=== PATIENT | female | born 1980 | race Caucasian/White ===

== ENCOUNTER 2022-02-19 10:27 | Inpatient (IN) ==
[2022-02-19] MEDS ORDERED: ASPIRIN 325 MG TABLET ONE (11:00)
[2022-02-19] MEDS ORDERED: ASPIRIN 325 MG TABLET PO STA (11:08)
[2022-02-19 11:15] LABS: Basophils # 0.1 10*3/uL (0.0-0.2); Basophils % 0.9 % (0.0-0.8); Eosinophils # 0.1 10*3/uL (0.0-0.87); Eosinophils % 1.3 % (0.00-10.9); Hematocrit 43.3 VOL% (35.7-47.0); Hemoglobin 14.2 GM/DL (12.0-16.0); Immature Granulocytes % 0.3 %; Immature Granulocytes Absolute 0.02 #; Lymphocytes # 3.6 10*3/uL (1.4-4.0); Lymphocytes % 45.9 % (21.3-54.2); Mean Corpuscular HGB Conc 32.8 GM/DL (32-36); Mean Corpuscular Volume 94.7 FL (87-102); Monocytes # 0.4 10*3/uL (0.11-0.8); Monocytes % 5.3 % (1.7-12.7); Neutrophils % 46.3 % (38.7-73.9); Platelet Count 330 T/CUMM (130-400); Red Blood Count 4.57 MC/CUMM (3.8-5.5); Red Cell Distribution Width 12.9 % (9.3-17.3); White Blood Count 7.9 T/CUMM (4-12)
[2022-02-19 11:40] LABS: Alanine Aminotransferase 57 U/L (13-56); Albumin 3.9 G/DL (3.4-5.0); Alkaline Phosphatase 104 U/L (45-117); Aspartate Amino Transferase 21 U/L (0-37); Bilirubin,Total < 0.39 MG/DL (0.20-1.00); Blood Urea Nitrogen 10 MG/DL (7-18); Calcium 9.2 MG/DL (8.5-10.1); Carbon Dioxide 25 MMOL/L (21-32); Chloride 108 MMOL/L (98-107); Glucose 106 MG/DL (74-106); Osmolality,Calculated 277.4 MOS/KG (273-304); Potassium 4.2 MMOL/L (3.5-5.1); Sodium 140 MMOL/L (136-145)
[2022-02-19 11:41] LABS: Bilirubin,Urine Negative (Negative); Blood, Urine Trace mg/dL (Negative); Glucose,Urine (UA) Negative (Negative); Ketones,Urine Negative (Negative); Nitrite,Urine Negative (Negative); Protein,Urine Negative (Negative); Urine Appearance Clear (Clear); Urine Color Yellow (Yellow); Urine Specific Gravity 1.015 (1.001-1.035); Urine Urobilinogen 0.2 eU/dL (<2.0); Urine pH 5.5 (4.5-8.0)
[2022-02-19 11:45] LABS: Mucus,Urine Occasional /LPF (Occasional); RBC,Urine <1 /HPF (0-4); Squamous Epithelial Cell,Urine Occasional /HPF (0-10)
[2022-02-19] MEDS: NITROGLYCERIN SL 0.4 MG TABLET SL PRN ×3 (12:10→12:20)
[2022-02-19] MEDS ORDERED: ACETAMINOPHEN 500 MG TABLET ONE (12:29)
[2022-02-19] MEDS ORDERED: ACETAMINOPHEN 500 MG TABLET PO STA (12:32)
[2022-02-19 12:42] LABS: INR 0.9; PT Patient Result 10.1 SECS (10.1-12.1); Partial Thromboplastin Time 23.7 SECS (23.7-32.9)
[2022-02-19] MEDS ORDERED: ZALEPLON 5 MG CAPSULE PO PRN (13:10)
[2022-02-19] MEDS ORDERED: DOCUSATE SODIUM 100 MG CAPSULE PO PRN (13:10)
[2022-02-19] MEDS: NICOTINE 21 MG/24 HR PATCH TRANSDERM SCH (14:15)
[2022-02-19] MEDS: ENOXAPARIN 40 MG/0.4 ML SYRINGE SUBCUT SCH (14:15)
[2022-02-19 14:56] LABS: Barbiturates Screen,Urine Positive (Negative); Benzodiazepines Screen,Urine Negative (Negative); Cannabinoid Screen,Urine Negative (Negative); Opiate Screen,Urine Negative (Negative); Phencyclidine Screen,Urine Negative (Negative)
[2022-02-19] MEDS ORDERED: ZIPRASIDONE 20 MG/1 ML VIAL IM ONE (14:57)
[2022-02-19] MEDS: LOSARTAN 25 MG TABLET PO SCH (15:47)
[2022-02-19] MEDS: ACETAMINOPHEN 325 MG TABLET PO PRN (17:55)
[2022-02-20 05:12] LABS: Basophils # 0.1 10*3/uL (0.0-0.2); Basophils % 0.8 % (0.0-0.8); Eosinophils # 0.1 10*3/uL (0.0-0.87); Eosinophils % 1.7 % (0.00-10.9); Eosinophils % 2.2 % (0.00-10.9); Hematocrit 44.2 VOL% (35.7-47.0); Hemoglobin 14.2 GM/DL (12.0-16.0); Immature Granulocytes % 0.3 %; Immature Granulocytes % 0.8 %; Immature Granulocytes Absolute 0.02 #; Immature Granulocytes Absolute 0.05 #; Lymphocytes # 3.4 10*3/uL (1.4-4.0); Lymphocytes # 3.5 10*3/uL (1.4-4.0); Lymphocytes % 54.2 % (21.3-54.2); Mean Corpuscular HGB Conc 32.1 GM/DL (32-36); Mean Corpuscular Volume 95.3 FL (87-102); Mean Platelet Volume 10.3 FL (9.6-12.0); Mean Platelet Volume 10.5 FL (9.6-12.0); Monocytes # 0.4 10*3/uL (0.11-0.8); Monocytes % 6.4 % (1.7-12.7); Monocytes % 6.5 % (1.7-12.7); Neutrophils % 35.5 % (38.7-73.9); Neutrophils % 35.8 % (38.7-73.9); Platelet Count 297 T/CUMM (130-400); Platelet Count 299 T/CUMM (130-400); Red Blood Count 4.51 MC/CUMM (3.8-5.5); Red Blood Count 4.64 MC/CUMM (3.8-5.5); Red Cell Distribution Width 12.9 % (9.3-17.3); White Blood Count 6.3 T/CUMM (4-12); White Blood Count 6.4 T/CUMM (4-12)
[2022-02-20 05:45] LABS: Platelet Estimate Normal
[2022-02-20 05:47] LABS: Folate 7.53 NG/ML (5.38-24.0); Vitamin B12 337 PG/ML (211-911)
[2022-02-20 05:53] LABS: Calcium 8.8 MG/DL (8.5-10.1); Osmolality,Calculated 282.3 MOS/KG (273-304); Potassium 3.6 MMOL/L (3.5-5.1); Risk Ratio 4.57; VLDL Cholesterol 40.4 MG/DL
[2022-02-20 05:58] LABS: Anisocytosis Slight; Eosinophils 5 % (0-10); Lymphocytes 55 % (20-55); Platelet Estimate Normal; Total Cells Counted 100
[2022-02-20 06:12] LABS: Sedimentation Rate-Westergren 13 MM/HR (0-20)
[2022-02-20] MEDS: BUTALBITAL/ACETAMIN/CAFFEINE 50-325-40 MG TABLET PO PRN ×2 (07:09→13:58)
[2022-02-20] MEDS: ONDANSETRON 4 MG/2 ML VIAL IV PRN ×2 (07:11→16:40)
[2022-02-20] MEDS: LOSARTAN 25 MG TABLET PO SCH (08:26)
[2022-02-20] MEDS: NITROGLYCERIN SL 0.4 MG TABLET SL PRN ×2 (08:29→08:40)
[2022-02-20] MEDS: ACETAMINOPHEN 325 MG TABLET PO PRN ×2 (08:33→08:38)
[2022-02-20] MEDS ORDERED: CHOLECALCIFEROL 1,000 UNIT TABLET PO SCH (09:00)
[2022-02-20] MEDS ORDERED: ZIPRASIDONE 20 MG/1 ML VIAL IM ONE (09:03)
[2022-02-20] MEDS ORDERED: busPIRone 10 MG TABLET PO SCH (09:04)
[2022-02-20] MEDS: GABAPENTIN 100 MG CAPSULE PO SCH ×2 (09:26→16:14)
[2022-02-20] MEDS: NICOTINE 21 MG/24 HR PATCH TRANSDERM SCH (10:23)
[2022-02-20] MEDS: ENOXAPARIN 40 MG/0.4 ML SYRINGE SUBCUT SCH (13:08)
[2022-02-20] MEDS ORDERED: HYDROmorphone 1 MG/1 ML SYRINGE SUBCUT PRN (14:13)
[2022-02-20] MEDS ORDERED: GABAPENTIN 100 MG CAPSULE PO SCH (15:00)
[2022-02-20 16:58] VITALS: BP 146/92
[2022-02-24 18:02] LABS: Hb A 93.8 % (95.8-98.0); Hb A2 2.5 % (2.0-3.3); Hb F 3.7 % (0.0-0.9)
[2022-02-26 07:53] LABS: Hemoglobin A1 (Alkaline) 92.4 % (96.5-98.5); Hemoglobin A2 (Alkaline) 2.3 % (1.5-3.5)
== END 2022-02-20 18:15 | disposition hospice, home (50) | DRG 96 ==
LOC: N.EDINP 10:27 → N.ED 10:27 → N.TELES 15:01 → UNDODISOB 02-20 18:15
PROVIDERS: ADMIT Hospitalist; ATTEND Hospitalist